=== PATIENT | female | born 1950 | race African-American/Black ===

== ENCOUNTER 2024-04-08 06:13 | Emergency (ER) | payer OTHER ==
[~2024-04-08] VITALS: Ht 167.6 cm; Wt 87.0 kg
[2024-04-08 06:17] VITALS: O2SAT 98
[2024-04-08] MEDS: IBUPROFEN 600MG TABLET PO ONE (07:15)
[2024-04-08 08:24] VITALS: BP 150/62; PULSE 78; RESP 18; TEMP 36.50292; O2SAT 98
== END 2024-04-08 08:25 | disposition home or self-care (01) ==
LOC: ER 06:13
DX: S20.219A Contusion of unspecified front wall of thorax, initial encounter (principal); E11.9 Type 2 diabetes mellitus without complications; V89.2XXA Person injured in unspecified motor-vehicle accident, traffic, initial encounter; Y93.89 Activity, other specified; Y92.89 Other specified places as the place of occurrence of the external cause; Y99.8 Other external cause status
CPT/HCPCS: 71045; 73030; 99284